=== PATIENT | male | born 1980 | race Caucasian/White ===

== ENCOUNTER 2017-06-25 00:13 | Emergency (ER) | payer BC, SELFPAY | END 2017-06-25 01:05 | disposition home or self-care (01) | LOC: ERS 00:13 | DX: Z03.89 Encounter for observation for other suspected diseases and conditions ruled out (principal); F17.210 Nicotine dependence, cigarettes, uncomplicated; Z71.6 Tobacco abuse counseling | CPT/HCPCS: 99406 ==